=== PATIENT | male | born 1945 | race Two or more races ===

== ENCOUNTER 2018-12-08 08:31 | Outpatient (CLI) | payer MEDICARE, MEDICAID ==
[2018-12-08] MEDS ORDERED: REGADENOSON 0.4 MG/5 ML DISP.SYRIN IVP ONE (09:00)
== END 2018-12-08 23:59 | disposition home or self-care (01) ==
LOC: NM 08:31
PROVIDERS: ATTEND Internal Medicine Cardiovascular Disease
DX: I25.10 Atherosclerotic heart disease of native coronary artery without angina pectoris (principal); I10 Essential (primary) hypertension; E11.9 Type 2 diabetes mellitus without complications
CPT/HCPCS: 78452; A9502; J2785